=== PATIENT | female | born 1945 | race Caucasian/White ===

== ENCOUNTER 2016-04-05 06:03 | Day surgery (SDC) | payer MEDICARE ==
[2016-04-03 10:07] VITALS: BMI 32.0
[2016-04-05 06:28] VITALS: RESP 18
[2016-04-05] MEDS ORDERED: SODIUM CHLORIDE 0.9% 250 ML IV ONE (06:29)
[2016-04-05] MEDS ORDERED: MIDAZOLAM 2 MG/2 ML VIAL ONE (07:12)
[2016-04-05] MEDS ORDERED: fentaNYL (PF) 50 MCG/ML 2 ML AMP ONE (07:12)
[2016-04-05] MEDS: BENZOCAINE SPRAY 100 APPLIC/CAN MUCOUS MEM ONE ×3 (07:22→07:33)
[2016-04-05] MEDS: MIDAZOLAM 2 MG/2 ML VIAL IV ONE ×2 (07:30→07:33)
[2016-04-05] MEDS ORDERED: fentaNYL (PF) 50 MCG/ML 2 ML AMP IV ONE (07:30)
[2016-04-05] MEDS ORDERED: SODIUM CHLORIDE 0.9% 1,000 ML IV SCH (08:00)
[2016-04-05] MEDS ORDERED: LOSARTAN PO SCH (09:00)
[2016-04-05] MEDS ORDERED: NON-FORMULARY DRUG (Omega-3 Fatty Acids/Fish Oil [Fish Oil 1,000 Mg Softgel] 1 EACH) PO SCH (09:00)
[2016-04-05] MEDS ORDERED: OXYBUTYNIN CHLORIDE 5 MG TAB PO SCH (09:00)
[2016-04-05] MEDS ORDERED: HYDROCHLOROTHIAZIDE PO SCH (09:00)
[2016-04-05] MEDS ORDERED: NON-FORMULARY DRUG (Calcium Carbonate [Calcium] 600 MG) PO SCH (09:00)
[2016-04-05] MEDS ORDERED: ASPIRIN 81 MG CHEW PO SCH (09:00)
[2016-04-05] MEDS ORDERED: NON-FORMULARY DRUG (Ubidecarenone [Co Q-10] 30 MG) PO SCH (09:00)
[2016-04-05 09:41] VITALS: PULSE 68; TEMP 98
[2016-04-05 09:42] VITALS: BP 128/59
--- NOTE | 2016-04-06 14:47 | ECHOT ---
DATE OF SERVICE: CLINICAL INFORMATION: INDICATION: Evaluation of mitral valve. PROCEDURE: After explaining the procedure to the patient, its risk and complications, blood pressure, heart rate, O2 saturation was monitored, she received 50 mcg of intravenous fentanyl and 2 mg of intravenous Versed. The throat was sprayed with Cetacaine. The probe was introduced into the esophagus without difficulty. Images were obtained. Following that, the probe was removed. There were no immediate complications. FINDINGS: Left atrial size is mildly dilated, left ventricular size and systolic function normal. The aortic valve and tricuspid valve are normal. The mitral valve revealed bileaflet prolapse, more noted on the posterior leaflets and predominantly in the P2 segment. No pericardial effusion is noted. Contrast bubble study revealed no evidence of shunting across the interatrial septum. The descending thoracic aortic appears to be normal. Doppler pulse wave and color Doppler were obtained and revealed mild tricuspid with mild to moderate central mitral regurgitation and mild pulmonic regurgitation. CONCLUSION: 1. Mildly dilated left atrium with normal appearance of left atrial appendage. 2. Normal left ventricular size and systolic function. 3. Prolapse of predominantly the posterior mitral valve leaflets and predominantly in the P2 segment with mild to moderate central mitral regurgitation. 4. Mild tricuspid regurgitation. 5. Mild pulmonic regurgitation. 6. No evidence of shunting across the interatrial septum.
== END 2016-04-05 09:38 | disposition home or self-care (01) ==
LOC: CATHCVL 06:03
PROVIDERS: ATTEND Internal Medicine Interventional Cardiology
DX: I34.0 Nonrheumatic mitral (valve) insufficiency (principal); I34.1 Nonrheumatic mitral (valve) prolapse; I37.1 Nonrheumatic pulmonary valve insufficiency; I10 Essential (primary) hypertension; I42.9 Cardiomyopathy, unspecified; I44.7 Left bundle-branch block, unspecified; E78.2 Mixed hyperlipidemia; Z82.49 Family history of ischemic heart disease and other diseases of the circulatory system; Z79.82 Long term (current) use of aspirin; Z79.899 Other long term (current) drug therapy
CPT/HCPCS: 93312; 93320; 93325; 99152; J2250; J3010

== ENCOUNTER → 2016-07-11 | Outpatient (CLI) | payer MEDICARE ==
[2016-07-11 10:51] LABS: ALT 31 U/L (9-52); AST 25 U/L (14-36); Alkaline Phosphatase 54 U/L (38-126); Anion Gap 9 mmol/L; Blood Urea Nitrogen 15 mg/dL (7-17); Calcium 9.5 mg/dL (8.4-10.2); Carbon Dioxide 29 mmol/L (22-30); Chloride 105 mmol/L (98-107); Cholesterol 235 mg/dL (<200); Glucose 122 mg/dL (74-99); HDL Cholesterol 45 mg/dL (40-60); Non-African American GFR(MDRD) >60 (>60 ml/min/1.73 sqM); Potassium 4.6 mmol/L (3.5-5.1); Sodium 143 mmol/L (137-145); Total Bilirubin 0.6 mg/dL (0.2-1.3); Total Protein 7.4 g/dL (6.3-8.2); Triglycerides 237 mg/dL (<150)
== END | disposition home or self-care (01) ==
LOC: LABWHC1 09:58
PROVIDERS: ATTEND Internal Medicine Interventional Cardiology
DX: E78.2 Mixed hyperlipidemia (principal)
CPT/HCPCS: 36415; 80053; 80061

== ENCOUNTER → 2018-11-06 | Outpatient (CLI) | payer MEDICARE ==
--- NOTE | 2018-11-07 13:21 | MM ---
Reason for exam: screening (asymptomatic). Last mammogram was performed 3 years and 10 months ago. History: Patient is postmenopausal. Physical Findings: A clinical breast exam by your physician is recommended on an annual basis and results should be correlated with mammographic findings. MG 3D Screening Mammo W/Cad Bilateral CC and MLO view(s) were taken. Prior study comparison: December 29, 2014, bilateral MG 3d diag mammo w/cad [facility]. May 15, 2012, bilateral digital screening mammo w/CAD. There are scattered fibroglandular densities. There is chronic nodularity in the left breast. There is no discrete abnormality. ASSESSMENT: Negative, BI-RAD 1 RECOMMENDATION: Routine screening mammogram of both breasts in 1 year.
== END | disposition home or self-care (01) ==
LOC: RADMAMWWP 14:35
PROVIDERS: ATTEND Family Medicine
DX: Z12.31 Encounter for screening mammogram for malignant neoplasm of breast (principal)
CPT/HCPCS: 77063; 77067

== ENCOUNTER → 2018-11-11 | Outpatient (CLI) | payer MEDICARE ==
--- NOTE | 2018-11-11 19:34 | BD ---
EXAMINATION TYPE: Axial Bone Density DATE OF EXAM: 11/11/2018 COMPARISON: 12/29/2014 CLINICAL HISTORY: 72-year-old female asymptomatic postmenopausal screening Height: 59.7 IN Weight: 161 LBS RISK FACTORS HISTORY OF: Active: YES Postmenopausal woman: AGE 49 MEDICATIONS: Additional Medications: CALCIUM, LOSARTAN, EXAM MEASUREMENTS: Bone mineral densitometry was performed using the [employer] System. Bone mineral density as measured about the Lumbar spine is: ----- L1-L4(G/cm2): 1.314 T Score Values are as follows: ----- L2: 0.5 ----- L3: 1.5 ----- L4: 1.6 ----- L1-L4: 1.1 Bone mineral density has: Increased 4.3% since study of: 12/29/14 Bone mineral density about the R hip (g/cm2): 0.770 Bone mineral density about the L hip (g/cm2): 0.736 T Score values are as follows: -----R Neck: -1.9 -----L Neck: -2.2 -----R Total: -1.1 -----L Total: -0.9 Bone mineral density has: Increased 4.9% since study of: 12/29/14 IMPRESSION: Osteopenia (T Score between -2.5 and -1). There is slightly increased risk of fracture and the patient may be considered for treatment. Re-Screen 2-5 years. NOTE: T-SCORE=SD OF THE YOUNG ADULT MEAN.
== END | disposition home or self-care (01) ==
LOC: RADBDWWP 16:17
PROVIDERS: ATTEND Family Medicine
DX: M85.80 Other specified disorders of bone density and structure, unspecified site (principal)
CPT/HCPCS: 77080

== ENCOUNTER → 2021-08-31 | Outpatient (CLI) | payer MEDICARE ==
--- NOTE | 2021-08-31 12:32 | BD ---
EXAMINATION TYPE: Axial Bone Density DATE OF EXAM: August 31, 2021 COMPARISON: DEXA bone scan November 11, 2018 CLINICAL HISTORY: 75 years year old Female. ICD-10 CODE: Z78.0 MENOPAUSAL STATE Height: 60 Weight: 165 FRAX RISK QUESTIONS: Alcohol (3 or more units per day): NO Family History (Parent hip fracture): NO Glucocorticoids (More than 3mos): NO History of Fracture in Adulthood: NO Secondary Osteoporosis: 1. Type 1 Diabetes: NO 2. Hyperthyroidism: NO 3. Menopause before 45: NO 4. Malnutrition: NO 5. Chronic liver disease: NO Rheumatoid Arthritis: NO Current Tobacco Use: NO RISK FACTORS HISTORY OF: Hip Fracture (Right/Left): NO Spine Fracture: NO History of Wrist Fracture: NO Surgery to Spine/Hip(right/left)/Wrist (right/left): NO Family History of Osteoporosis: NO Active: YES Diet low in dairy products/other sources of calcium: NO Postmenopausal woman: YES Take estrogen and/or progesterone medications: NO Lost more than 2 inches in height since high school: NO Frequent falls: NO Poor Health: NO Hyperparathyroidism: NO Adrenal Insufficiency: NO MEDICATIONS: Prednisone or other steroids: NO Thyroid Medications: NO Osteoporosis Medications: NO Which medication: How Long: Additional Medications: CHOLESTEROL MEDS, BP MEDS, VIT D, CALCIUM, MULTI VIT., EXAM MEASUREMENTS: Bone mineral densitometry was performed using the [employer] System. Bone mineral density as measured about the Lumbar spine is: ----- L1-L4(G/cm2): 1.320 T Score Values are as follows: ----- L1: 0.7 ----- L2: 0.8 ----- L3: 2.0 ----- L4: 1.1 ----- L1-L4: 1.2 Bone mineral density has: INCREASED 0.7 % since study of: 11/11/2018 Bone mineral density about the R hip (g/cm2): 0.747 Bone mineral density about the L hip (g/cm2): 0.746 T Score values are as follows: -----R Neck: -2.1 -----L Neck: -2.1 -----R Total: -1.2 -----L Total: -0.9 Bone mineral density has: DECREASED 0.9 % since study of: 11/11/2018 FRAX%s: The graph provided illustrates a 14.1% chance for a major osteoporotic fx and a 3.9 chance fo r the hips probability for fx in 10 years time. IMPRESSION: Osteopenia (T Score between -2.5 and -1). There is slightly increased risk of fracture and the patient may be considered for treatment. Re-Screen 2-5 years. NOTE: T-SCORE=SD OF THE YOUNG ADULT MEAN.
--- NOTE | 2021-09-01 09:06 | MM ---
Reason for Exam: Screening (asymptomatic). Last mammogram was performed 2 year(s) and 10 month(s) ago. Patient History: Menarche at age 11. First Full-Term at age 18. Left ovary removed at age 47. Right ovary removed at age 47. Hysterectomy at age 47. Postmenopausal. Estrogen and Progesterone, starting at age 47 for 20 years. Risk Values: Alley 5 year model risk: 1.3%. NCI Lifetime model risk: 2.6%. Prior Study Comparison: 05/15/2012 Bilateral Screening Mammogram, [facility]. 12/29/2014 Bilateral Diagnostic Mammogram, [facility]. 11/06/2018 Bilateral Screening Mammogram, [facility]. Tissue Density: The breast tissue is heterogeneously dense. This may lower the sensitivity of mammography. Findings: Analyzed By CAD. There is no suspicious group of microcalcifications or new suspicious mass in either breast. Overall Assessment: Negative, BI-RAD 1 Management: Screening Mammogram of both breasts in 1 year. A clinical breast exam by your physician is recommended on an annual basis and results should be correlated with mammographic findings. Electronically signed and approved by: Tin Luciano M.D. Radiologis
== END | disposition home or self-care (01) ==
LOC: RADMAMWWP 11:06
PROVIDERS: ATTEND Family Medicine
DX: Z12.31 Encounter for screening mammogram for malignant neoplasm of breast (principal); Z78.0 Asymptomatic menopausal state
CPT/HCPCS: 77063; 77067; 77080

== ENCOUNTER 2023-01-20 17:44 | Emergency (ER) | payer MEDICARE ==
[2023-01-20 18:44] VITALS: PULSE 71; TEMP 98.5
--- NOTE | 2023-01-20 18:44 | ED ---
Fall HPI - General Source: patient Mode of arrival: ambulatory <EarleneKimo bowles - Last Filed: 01/20/23 18:44> <Gage Singh - Last Filed: 01/20/23 20:22> - General Source: family, RN notes reviewed <Soco Knight - Last Filed: 01/20/23 20:50> - General Chief Complaint: Fall Stated Complaint: fall - History of Present Illness Initial Comments: 77-year-old female presenting to the ED with a chief complaint of right wrist pain. Patient states that she tried to turn around and in doing so lost her balance and fell forward. States that she attempted to cut herself with her right hand. Did not hit her head at this time. Now notes pain of the right wrist. No other injuries at this time. (Kimo Brown) Patient is a 77-year-old female presenting to the ER with a chief complaint of right wrist injury. Patient states she fell off her porch while she was trying to lock her car with the louise. Patient states she fell onto the grass and tried to use her right wrist to brace herself. Patient states she did bump her head on the ground. She denies any loss of consciousness, blood thinner use, nausea vomiting, other injuries. Patient denies any dizziness or lightheadedness prior to incident. (Soco Knight) - Related Data Home Medications Medication Instructions Recorded Confirmed Aspirin [Adult Low Dose Aspirin EC] 81 mg PO DAILY 04/03/16 04/05/16 Calcium Carbonate [Calcium] 600 mg PO BID 04/03/16 04/05/16 Losartan/Hydrochlorothiazide 1 each PO DAILY 04/03/16 04/05/16 [Hyzaar 100-25 Tablet] [place]-3 Fatty Acids/Fish Oil [Fish 1 each PO DAILY 04/03/16 04/05/16 Oil 1,000 mg Softgel] Ubidecarenone [Co Q-10] 30 mg PO DAILY 04/03/16 04/05/16 oxyBUTYnin chloride [Ditropan] 2.5 mg PO BID 04/03/16 04/05/16 Allergies Allergy/AdvReac Type Severity Reaction Status Date / Time Sulfa (Sulfonamide Allergy Rash/Hives Verified 01/20/23 18:37 Antibiotics) Review of Systems ROS Other: All systems not noted in ROS Statement are negative. <Kimo Brown - Last Filed: 01/20/23 18:44> ROS Other: All systems not noted in ROS Statement are negative. <Gage Singh Mouna - Last Filed: 01/20/23 20:22> ROS Other: All systems not noted in ROS Statement are negative. <Soco Knight - Last Filed: 01/20/23 20:50> ROS Statement: Those systems with pertinent positive or pertinent negative responses have been documented in the HPI. Past Medical History Past Medical History: Hyperlipidemia, Hypertension Additional Past Medical History / Comment(s): varicose veins, bumpy skin and itching rt arm, History of Any Multi-Drug Resistant Organisms: None Reported Past Surgical History: Hysterectomy Additional Past Surgical History / Comment(s): cardiac Echo Past Anesthesia/Blood Transfusion Reactions: No Reported Reaction Past Psychological History: No Psychological Hx Reported Smoking Status: Never smoker Past Alcohol Use History: None Reported Past Drug Use History: None Reported - Past Family History Mother Family Medical History: No Reported History <Kimo Brown - Last Filed: 01/20/23 18:44> General Exam Limitations: no limitations <Kimo Brown - Last Filed: 01/20/23 18:44> General appearance: alert, in no apparent distress Head exam: Present: atraumatic, normocephalic, normal inspection, other (Small abrasion noted to forehead.) Eye exam: Present: normal appearance, PERRL, EOMI. Absent: scleral icterus, conjunctival injection, periorbital swelling Pupils: Present: normal accommodation Neck exam: Present: normal inspection. Absent: tenderness, meningismus, lymphadenopathy Respiratory exam: Present: normal lung sounds bilaterally. Absent: respiratory distress, wheezes, rales, rhonchi, stridor Cardiovascular Exam: Present: regular rate, normal rhythm, normal heart sounds. Absent: systolic murmur, diastolic murmur, rubs, gallop, clicks Extremities exam: Present: other (Right wrist deformity noted. 2+ right radial pulse. Intact sensation. No anatomical snuffbox tenderness.) Neurological exam: Present: alert, oriented X3, CN II-XII intact Psychiatric exam: Present: normal affect, normal mood Skin exam: Present: warm, dry, intact, normal color. Absent: rash <Soco Knight - Last Filed: 01/20/23 20:50> Course Vital Signs 01/20/23 18:33 Temperature 98.5 F Pulse Rate 71 Respiratory 20 Rate Blood Pressure 160/89 O2 Sat by Pulse 99 Oximetry Procedures - Orthopedic Fracture Reduction Fracture #1 Consent Obtained: verbal consent Side: right Fracture Reduction Location: radius Analgesia: hematoma block Technique: direct manipulation, traction/counter-traction Post Reduction X-rays Demonstrate: acceptable reduction Post-Reduction Neuro Exam: intact Post-Reduction Vascular Exam: intact Splint Applied: Yes Patient Tolerated Procedure: well - Orthopedic Splinting/Casting Injury #1 Side: right Upper Extremity Injury Location: short arm Upper Extremity Immobilizer: volar splint <Gage Singh - Last Filed: 01/20/23 20:22> Medical Decision Making <Kimo Brown - Last Filed: 01/20/23 18:44> - Radiology Data Radiology results: report reviewed, image reviewed <Soco Knight - Last Filed: 01/20/23 20:50> - Medical Decision Making Quicknote portion performed. Signed Kimo Brown PA-C (Kimo Brown) Was pt. sent in by a medical professional or institution (SONIDO Zaldivar, HOBBING PRESS OPERATOR, urgent care, hospital, or prison...) When possible be specific @ -No Did you speak to anyone other than the patient for history (EMS, parent, family, police, friend...)? What history was obtained from this source @ -Family Did you review nursing and triage notes (agree or disagree)? Why? @ -I reviewed and agree with nursing and triage notes Were old charts reviewed (outside hosp., previous admission, EMS record, old EKG, old radiological studies, urgent care reports/EKG's, prison records)? Report findings @ -No old charts were reviewed Differential Diagnosis (chest pain, altered mental status, abdominal pain women, abdominal pain men, vaginal bleeding, weakness, fever, dyspnea, syncope, headache, dizziness, GI bleed, back pain, seizure, CVA, palpatations, mental health, musculoskeletal)? @ -Differential Musculoskeletal: Muscular strain, contusion, ligament sprain, fracture, arthritis, septic arthritis, bursitis, cellulitis, muscle spasm, nerve compression, DVT, arterial occlusion, herpes zoster, electrolyte abnormality, tumor.... This is not meant to be in all inclusive list EKG interpreted by me (3pts min.). @ -None X-rays interpreted by me (1pt min.). @ -Right wrist x-ray shows acute Colles' fracture to distal radius. Postreduction x-ray shows improved alignment. CT interpreted by me (1pt min.). @ -None done U/S interpreted by me (1pt. min.). @ -None done What testing was considered but not performed or refused? (CT, X-rays, U/S, labs)? Why? @ -None What meds were considered but not given or refused? Why? @ -None Did you discuss the management of the patient with other professionals (professionals i.e. , PA, HOBBING PRESS OPERATOR, lab, RT, psych nurse, social worker school, manager of operations, teacher, prison officer, case packer and sealer)? Give summary @ -No Was smoking cessation discussed for >3mins.? @ -No Was critical care preformed (if so, how long)? @ -No Were there social determinants of health that impacted care today? How? (Homelessness, low income, unemployed, alcoholism, drug addiction, transportation, low edu. Level, literacy, decrease access to med. care, longterm, rehab)? @ -No Was there de-escalation of care discussed even if they declined (Discuss DNR or withdrawal of care, Hospice)? DNR status @ -No What co-morbidities impacted this encounter? (DM, HTN, Smoking, COPD, CAD, Cancer, CVA, ARF, Chemo, Hep., AIDS, mental health diagnosis, sleep apnea, morbid obesity)? @ -None Was patient admitted / discharged? Hospital course, mention meds given and route, prescriptions, significant lab abnormalities, going to OR and other perti nent info. @ -Discharge. Upon examination patient remained neurovascularly intact. No anatomical snuffbox tenderness. Right wrist x-ray shows acute Colles' fracture to the distal radius. Fracture was reduced using a hematoma block and traction/manipulation. Volar splint was placed. Postreduction x-ray shows improved alignment of the fracture. Patient remained neurovascularly intact after reduction. Patient received IM Toradol for pain control in the ER. Patient be discharged in stable condition with follow-up to orthopedics. Patient expressed understanding and agreement with care plan. Undiagnosed new problem with uncertain prognosis? @ -No Drug Therapy requiring intensive monitoring for toxicity (Heparin, Nitro, Insulin, Cardizem)? @ -No Were any procedures done? @ -No Diagnosis/symptom? @ -Right Colles' fracture of distal radius Acute, or Chronic, or Acute on Chronic? @ -Acute Uncomplicated (without systemic symptoms) or Complicated (systemic symptoms)? @ -Uncomplicated Side effects of treatment? @ -No Exacerbation, Progression, or Severe Exacerbation? @ -No Poses a threat to life or bodily function? How? (Chest pain, USA, MS, pneumonia, PE, COPD, DKA, ARF, appy, cholecystitis, CVA, Diverticulitis, Homicidal, Suicidal, threat to staff... and all critical care pts) @ -No (Soco Knight) Disposition <Kimo Brown - Last Filed: 01/20/23 18:44> <Gage Singh - Last Filed: 01/20/23 20:22> Is patient prescribed a controlled substance at d/c from ED?: No Time of Disposition: 20:31 <Soco Knight - Last Filed: 01/20/23 20:50> Clinical Impression: Colles' fracture of right radius Disposition: HOME SELF-CARE Condition: Stable Additional Instructions: Please return to the Emergency Department if symptoms worsen or any other concerns. Please follow-up with orthopedics in the next 1-2 days. Referrals: Quincy Cabrera MD [Primary Care Provider] - 1-2 days Elliot Jimenez MD [STAFF PHYSICIAN] - 1-2 days
[2023-01-20] MEDS ORDERED: KETOROLAC 15 MG/ML 1 ML VIAL IM STA (19:16)
--- NOTE | 2023-01-20 19:32 | XR ---
EXAMINATION TYPE: XR wrist complete RT DATE OF EXAM: 01/20/2023 6:53 PM CLINICAL INDICATION:Female, 77 years old with history of fall; [facility] COMPARISON: None TECHNIQUE: 4 views right wrist FINDINGS: Osseous mineralization appears reduced. Mild/moderate degenerative changes are seen, greatest in the thumb interphalangeal and carpometacarpal joints. Carpal bones appear intact and normally aligned. Acute, comminuted distal radial metaphyseal fracture, primarily transverse with some intra-articular extension however no significant articular surface step-off is seen, aside from minimal step-off sugg ested dorsally on the lateral view. There is dorsal angulation of the distal fracture fragments. Mild irregularity of the ulnar styloid process may reflect a nondisplaced fracture versus degenerative ch anges. Mild soft tissue swelling about the wrist. IMPRESSION: Acute Colles' fracture of the distal right radius.
[2023-01-20] MEDS ORDERED: LIDOCAINE 1% INJ 10MG/ML (20 ML MDV) SQ ONE (19:41)
[2023-01-20 20:48] VITALS: BP 144/83; RESP 18
--- NOTE | 2023-01-20 21:25 | XR ---
EXAMINATION TYPE: XR wrist limited RT DATE OF EXAM: 01/20/2023 8:19 PM CLINICAL INDICATION:Female, 77 years old with history of post reduction; [facility] COMPARISON: Wrist x-rays earlier today TECHNIQUE: 2 views right wrist. FINDINGS: Status post reduction and splinting. The comminuted Colles' fracture of the distal radius s hows less craniocaudal impaction on the frontal view, slightly improved alignment on the lateral view with less dorsal tilting of the distal fracture fragments. There remains a minimally displaced fragm ent along the dorsal margin. Minimally displaced ulnar styloid process fracture is also seen. Remaind er of exam unchanged. IMPRESSION: 1. Status post reduction and splinting of the right wrist. 2. Improved alignment of the distal radial Colles' fracture. 3. Minimally displaced fracture of the ulnar styloid process.
== END 2023-01-20 20:44 | disposition home or self-care (01) ==
LOC: EC 17:44
DX: S52.531A Colles' fracture of right radius, initial encounter for closed fracture (principal); S52.611A Displaced fracture of right ulna styloid process, initial encounter for closed fracture; I10 Essential (primary) hypertension; Z88.2 Allergy status to sulfonamides; Z79.82 Long term (current) use of aspirin; Z79.899 Other long term (current) drug therapy; W19.XXXA Unspecified fall, initial encounter
CPT/HCPCS: 73100; 73110; 25605; 96372; 99284; J2001; J1885

== ENCOUNTER → 2023-09-17 | Outpatient (CLI) | payer MEDICARE ==
--- NOTE | 2023-09-17 15:19 | BD ---
EXAMINATION TYPE: Axial Bone Density DATE OF EXAM: 09/17/2023 CLINICAL HISTORY: 77 years old Female. ICD-10 CODE: ,Z78.0 ASYMPTOMATIC MENOPAUSAL Height: 60" Weight: 150lbs FRAX RISK QUESTIONS: Alcohol (3 or more units per day): No Family History (Parent hip fracture): No Glucocorticoids (More than 3mos): No (Ex: prednisone, prednisolone, methylprednisolone, dexamethasone, and hydrocortisone). History of Fracture in Adulthood: Yes Secondary Osteoporosis: 1. Type 1 Diabetes: No 2. Hyperthyroidism: No 3. Menopause before 45: No 4. Malnutrition: No 5. Chronic liver disease: No Rheumatoid Arthritis: No Current Tobacco Use: No RISK FACTORS HISTORY OF: Hip Fracture (Right/Left): No Spine Fracture: No History of Wrist Fracture: Yes, Right wrist When: 12/2022 Surgery to Spine/Hip(right/left)/Wrist (right/left): Right wrist When: 12/2022 MEDICATIONS: Thyroid Medications: No Osteoporosis Medications: No EXAM MEASUREMENTS: Bone mineral densitometry was performed using the [employer] System. Bone mineral density as measured about the Lumbar spine is: ----- L1-L4(G/cm2): 1.313 T Score Values are as follows: ----- L1: 0.6 ----- L2: 0.4 ----- L3: 2.2 ----- L4: 1.2 ----- L1-L4: 1.1 Z Score Values are as follows: ----- L1: 2.3 ----- L2: 2.2 ----- L3: 3.9 ----- L4: 2.9 ----- L1-L4: 2.8 Bone mineral density has: decreased -0.5% since study of: 08/31/2021 Bone mineral density about the R hip (g/cm2): 0.768 Bone mineral density about the L hip (g/cm2): 0.888 T Score values are as follows: -----R Neck: -2.3 -----L Neck: -2.2 -----R Total: -1.9 -----L Total: -0.9 Z Score values are as follows: -----R Neck: -0.3 -----L Neck: -0.2 -----R Total: -0.0 -----L Total: 0.9 Bone mineral density has: decreased -5.0% since study of: 08/31/2021 FRAX%s: The graph provided illustrates a 24.1% chance for a major osteoporotic fx and a 7.1% chance f or the hips probability for fx in 10 years time. IMPRESSION: Normal (Values between +1 and -1 indicate normal bone mass). Consider repeating this study in 5 year s or sooner if there is some new clinical indication. NOTE: T-SCORE=SD OF THE YOUNG ADULT MEAN.
--- NOTE | 2023-09-18 13:47 | MM ---
Reason for Exam: Screening (asymptomatic). Last mammogram was performed 2 year(s) and 0 month(s) ago. Patient History: Menarche at age 11. First Full-Term at age 18. Left ovary removed at age 47. Right ovary removed at age 47. Hysterectomy at age 47. Postmenopausal. Estrogen and Progesterone, starting at age 47 for 20 years. Risk Values: Alley 5 year model risk: 1.2%. NCI Lifetime model risk: 2.2%. Prior Study Comparison: 12/29/2014 Bilateral Diagnostic Mammogram, [facility]. 11/06/2018 Bilateral Screening Mammogram, [facility]. 08/31/2021 Bilateral MG 3D screening mammo w/cad, [facility]. Tissue Density: There are scattered areas of fibroglandular density. Findings: Analyzed By CAD. There is no suspicious group of microcalcifications or new suspicious mass in either breast. Overall Assessment: Negative, BI-RAD 1 Management: Screening Mammogram of both breasts in 1 year. . Patient should continue monthly self-breast exams. A clinical breast exam by your physician is recommended on an annual basis. This exam should not preclude additional follow-up of suspicious palpable abnormalities. Note on Alley scores and lifetime risk: 1. A Alley score greater than 3% is considered moderate risk. If this is the case, consider specialist referral to assess eligibility for a risk reducing agent. 2. If overall lifetime risk for the development of breast cancer is 20% or higher, the patient may qualify for future screening with alternating mammogram and breast MRI. Electronically signed and approved by: Tin Luciano M.D. Radiologis
== END | disposition home or self-care (01) ==
LOC: RADMAMWWP 10:40
PROVIDERS: ATTEND Family Medicine
DX: Z12.31 Encounter for screening mammogram for malignant neoplasm of breast (principal); Z78.0 Asymptomatic menopausal state; M85.89 Other specified disorders of bone density and structure, multiple sites; R92.323 Mammographic fibroglandular density, bilateral breasts
CPT/HCPCS: 77063; 77067; 77080